=== PATIENT | female | born 1950 | race Caucasian/White ===

== ENCOUNTER → 2019-04-07 | Outpatient (CLI) | payer MEDICARE, BC ==
[~2019-04-07] MED LIST: ASPI81CH; LISINOPRIL; WELLBUTRIN
== END ==
LOC: PLD 08:21 → LAB SHORT 08:21
DX: L57.0 Actinic keratosis (principal)
CPT/HCPCS: 88305

== ENCOUNTER 2022-01-03 07:33 | Day surgery (SDC) | payer MEDICARE ==
[~2022-01-03] VITALS: Ht 160 cm; Wt 84.4 kg
[~2022-01-03 07:33] MED LIST changes: +EUTHYROX50 MCG PO; +Vesicare10 MG PO; +ZESTRIL40 M2 PO
[2022-01-03] MEDS ORDERED: Aspir 8181 MG (08:09)
== END 2022-01-03 09:44 | disposition home or self-care (01) ==
LOC: ORSCSDS 07:33
PROVIDERS: Internal Medicine Gastroenterology
PROC: 0DB58ZX Excision of Esophagus, Via Natural or Artificial Opening Endoscopic, Diagnostic (ICD-10-PCS; principal; 2022-01-03 09:00)
PROC: 0D757ZZ Dilation of Esophagus, Via Natural or Artificial Opening (ICD-10-PCS; principal; 2022-01-03 09:00)
DX: R13.10 Dysphagia, unspecified (principal); E66.9 Obesity, unspecified; K22.2 Esophageal obstruction; I10 Essential (primary) hypertension; E78.5 Hyperlipidemia, unspecified; E03.9 Hypothyroidism, unspecified; Z68.32 Body mass index [BMI] 32.0-32.9, adult; Z79.899 Other long term (current) drug therapy
CPT/HCPCS: 88305; J2704; J7120